=== PATIENT | female | born 1990 | race Caucasian/White ===

== ENCOUNTER 2022-04-20 09:25 | Emergency (ER) | payer OTHER, SELFPAY ==
[2022-04-20 09:26] VITALS: BP 136/89; PULSE 119; RESP 18; TEMP 36.3; O2SAT 100; BMI 25.4
--- NOTE | 2022-04-20 10:47 | RAD_ITS ---
STUDY: X-RAY CHEST REASON FOR EXAM: Female, 32 years old. Chest pain TECHNIQUE: Single AP portable view of the chest. COMPARISON: None. FINDINGS: EKG electrodes are seen. The lungs are clear and expanded. There is no demonstrated pleural abnormality. Normal size heart. Normal mediastinum and yvan. Normal visualized pulmonary arteries. Normal visualized aortic arch and descending thoracic aorta. There is a mild dextroscoliosis of the thoracic spine. Normal visualized ribs, clavicles, and shoulders. There is no demonstrated abnormality of the visualized soft tissue structures of the upper abdomen. RAD/Chest 1 View (Portable) IMPRESSION: No acute abnormality seen. Electronically Signed: Rivas Wylie MD at 13:06 [facility] ,
--- NOTE | 2022-04-20 10:47 | EKG12_ITS ---
Test Reason : CP Blood Pressure : / mmHG Vent. Rate : 094 BPM Atrial Rate : 094 BPM P-R Int : 130 ms QRS Dur : 098 ms QT Int : 358 ms P-R-T Axes : 075 083 014 degrees QTc Int : 447 ms Normal sinus rhythm Possible Left atrial enlargement Incomplete right bundle branch block Nonspecific ST and T wave abnormality Abnormal ECG Confirmed by NOA ROBLES, SHAHLA ([id number]), publishing editor ALFRED BOYER ([id number]) on 04/22/2022 9:34:52 AM Referred By: SERA Confirmed By:SHAHLA LATHAM MD
--- NOTE | 2022-04-20 10:55 | EX.ED.DYSGE1 ---
HPI History of Present Illness Chief Complaint: Chest Pain Informant: patient and spouse/S.O. Narrative Narrative: 32-year-old female presenting for the evaluation of chest pain and back pain. Patient states that she has felt this intermittently. This is worse last night. Sometimes she notes a burning in her chest. She denies any difficulty eating or drinking. No vomiting. No shortness of breath. No fevers. No rashes. Patient denies any known trauma. Nothing seems to make it better or worse. Symptoms or not ongoing at this time. [facility] Medical History (Updated 04/20/22 @ 10:[address] Omid Olvera DO) Anxiety Medical History no medical history Allergy/AdvReac Type Severity Reaction Status Date / Time No Known Allergies Allergy Verified 04/20/22 09:25 Surgical History [place] teeth removed Social History Smoking Status: Never smoker EXAM Physical Exam Const Vital Signs: 04/20/22 09:26 04/20/22 09:46 04/20/22 11:25 Temperature 97.4 F L 98.0 F Temperature Source Temporal Oral Pulse Rate 119 H 85 Respiratory Rate 18 16 Respiratory Effort Normal Non-Labored Respiratory Pattern Normal Blood Pressure 136/89 H 124/87 H Blood Pressure Mean 104 99 Pulse Ox 100 100 Oxygen Delivery Method Room Air Room Air Positive well nourished and well developed General Appearance ED: well developed HEENT Reports normocephalic, head/scalp atraumatic and moist mucous membranes Eyes PERRL and EOMs intact bilaterally Neck no lymphadenopathy, supple and no JVD Resp normal respiratory effort and clear to auscultation bilaterally Cardio regular rate, regular rhythm and no murmurs GI normal to inspection, nondistended, normoactive bowel sounds and non-tender Palpation: soft Back/Spine no CVA tenderness and normal ROM Extremity normal to inspection General Extremety ED: Negative for edema General Extremity: Negative for edema Neuro oriented x3 and CN's II-XII intact bilaterally Sensorium / Orientation: alert Motor Exam: strength 5/5 throughout Psych mental status grossly normal Mood & Affect: Negative for depressed or tearful Skin no rashes or lesions noted and no wounds MDM MDM MDM Narrative Medical decision making narrative: Basic blood work was negative including D-dimer and troponin. Her EKG is a normal sinus rhythm with an incomplete bundle branch block and a ventricular rate of 94. I think the patient can be discharged home. At times as a burning sensation I wonder if she has some form of GERD/esophagitis. Is reasonable to place her on a PPI and have her follow-up in 2 weeks Lab Data Attestation: I reviewed the patient's lab results. Labs: Laboratory Results - last 24 hr 04/20/22 04/20/22 04/20/22 11:11 11:11 11:11 WBC 5.6 RBC 4.90 Hgb 14.4 Hct 44.3 MCV 90.4 MCH 29.4 MCHC 32.5 RDW Std Deviation 39.9 RDW Coeff of Christofer 12.0 Plt Count 244 MPV 10.0 Immature Gran % (Auto) 0.200 Neut % (Auto) 71.9 H Lymph % (Auto) 20.9 [place] % (Auto) 5.2 Eos % (Auto) 1.3 Baso % (Auto) 0.5 Absolute Neuts (auto) 4.0 Absolute Lymphs (auto) 1.17 Nucleated RBC % 0 D-Dimer Quant (PE/DVT) < 0.27 L Sodium 139 Potassium 4.1 Chloride 107 Carbon Dioxide 27.0 Anion Gap 5 BUN 9 Creatinine 0.78 Estim Creat Clear Calc 81.89 Est GFR (MDRD) Af Amer 110 Est GFR (MDRD) Non-Af 91 BUN/Creatinine Ratio 11.5 Glucose 111 H Calcium 9.4 Troponin I High Sens 4 EKG Initial EKG: Attestation: I personally reviewed and interpreted this EKG as follows: Comments: Normal sinus rhythm with an incomplete right bundle branch block with a ventricular rate of 94 bpm Discharge Plan Triage Chief Complaint: Chest Pain ED Provider: Omid Olvera Dx/Rx/DC Orders Primary Care Provider: Jamarcus Paz NP Referrals: Jamarcus Paz RETURNED GOODS RECEIVING CLERK, RETURNED GOODS RECEIVING CLERK-C [Primary Care Provider] -
[2022-04-20 11:18] LABS: Absolute Lymphocyte Count 1.17 X10^3/uL (0.83-4.51); Basophil# 0.03 X10^3/uL; Basophil% 0.5 % (0-1); Eosinophil# 0.07 X10^3/uL; Eosinophils% 1.3 % (0-5); Hematocrit 44.3 % (37-47); Hemoglobin 14.4 g/dL (12.0-15.0); Lymphocyte # 1.17 X10^3/ul (0.83-4.51); Lymphocyte % 20.9 % (19-41); Mean Corp Hgb Conc 32.5 g/dL (32-36); Mean Corpuscular Hgb 29.4 pg (27.0-32.0); Mean Corpuscular Volume 90.4 fL (81-99); Monocyte# 0.29 X10^3/uL; Monocyte% 5.2 % (0-10); NRBC Flagged by Analyzer 0 % (0-5); Neutrophil # 4.02 X10^3/uL (2.7-7.7); Neutrophil % 71.9 % (47-70); Platelet Count 244 K/mm3 (150-450); RBC Distribution Width SD 39.9 fl (35.1-43.9); White Blood Count 5.6 K/mm3 (4.4-11.0)
[2022-04-20 11:25] VITALS: BP 124/87; PULSE 85; RESP 16; TEMP 36.7; O2SAT 100
[2022-04-20 11:34] LABS: Anion Gap 5 (5-15); BUN 9 mg/dL (7-18); BUN/Creat Ratio 11.5 RATIO (10-20); Calcium,Total 9.4 mg/dL (8.5-10.1); Chloride 107 mmol/L (98-107); Creatinine, Serum 0.78 mg/dL (0.55-1.02); EST Glomerular Filtration Rate 91 mL/min (>60); Est Glom Filt Rate - Afr Amer 110 mL/min (>60); Estimated Creatinine Clearance 81.89 ml/min; Glucose 111 mg/dL (74-106); Potassium 4.1 mmol/L (3.5-5.1); Sodium Level 139 mmol/L (136-145); Troponin-I HS (w/2H Reflex) 4 pg/mL (3.0-54.0)
[2022-04-20 11:37] LABS: D-Dimer Quantitative (DVT/PE) < 0.27 FEU/ug/m (0.27-0.49)
[2022-04-20 12:42] VITALS: BP 134/66; PULSE 81; RESP 16; O2SAT 97
[2022-04-20 13:15] LABS: Reflex Troponin-HS? (from REC) Y
== END 2022-04-20 12:42 | disposition home or self-care (01) ==
PROVIDERS: Emergency Provider Emergency Medicine; PCP Nurse Practitioner Family; Visit Provider Emergency Medicine
DX: R07.9 Chest pain, unspecified (principal); I45.4 Nonspecific intraventricular block; M54.9 Dorsalgia, unspecified
CPT/HCPCS: 71045; 80048; 84484; 85025; 85379; 93005; 99284; A4216